=== PATIENT | male | born 1940 | race Caucasian/White ===

== ENCOUNTER → 2019-03-02 | Outpatient (CLI) | payer MEDICARE ==
--- NOTE | 2019-03-06 13:01 | PE ---
Nuclear medicine PET/CT HISTORY: Right renal cell carcinoma, subsequent Patient received 10.9 mCi F-18 FDG intravenously in delayed scanning was performed from the skull bas e to the mid thighs. Localization and attenuation correction CT scan was performed. No comparisons Neck and chest: There is no evident cervical, supraclavicular, mediastinal, axillary, or hilar adenop athy. Patient is post median sternotomy. Calcification present in the coronary arteries and root of t he aorta along the aortic valve and mitral annulus. No pleural or pericardial effusion. Hiatal hernia is noted. There is no evident lung mass. No suspicious hypermetabolic uptake. ABDOMEN: There is a large mass in the right lower quadrant. There is associated hypermetabolic uptake , SUV is 2.6. Mass measures approximately 8.6 cm in greatest transverse dimension along the right pso as muscle extending from the right. Caval region. There is some strand-like densities within the mese nteric fat, mass effect on the inferior vena cava and right psoas muscle. Patient is status post righ t nephrectomy. There is some activity associated with the bowel which is coursing immediately anterio r to the mass, the cecal region which may represent physiologic activity. Osseous structures are unremarkable. IMPRESSION: Large mass described may be indicative of metastatic focus.
== END | disposition home or self-care (01) ==
LOC: RADPETMAIN 12:18
PROVIDERS: ATTEND Internal Medicine Hematology & Oncology
DX: C64.1 Malignant neoplasm of right kidney, except renal pelvis (principal); R19.03 Right lower quadrant abdominal swelling, mass and lump
CPT/HCPCS: 78815; A9552